=== PATIENT | male | born 1965 | race Caucasian/White ===

== ENCOUNTER 2019-04-29 10:22 | Emergency (ER) | payer BC ==
--- NOTE | 2019-04-29 10:48 | ED ---
Lower Extremity - HPI Summary HPI Summary: This patient is a 54 year old M presenting to [facility] accompanied by with a chief complaint of pain in back of left calf since 04/28/19. Pt reports he was throwing a barrel of hay onto hay wagon and something popped in his knee. Pt reports several months ago there was a knot in the left knee, that has been there but it was gone yesterday. The patient rates the pain 7/10 in severity, when ambulating, and 0/10 when resting. - History of Current Complaint Chief Complaint: EDExtremityLower Stated Complaint: PAIN/SWELLING IN LT CALF PER PT Time Seen by Provider: 04/29/19 10:40 Hx Obtained From: Patient Mechanism Of Injury: Twisted Onset of Pain: Post Accident Onset/Duration: Still Present Severity Initially: Moderate Severity Currently: None Pain Intensity: 0 Pain Scale Used: 0-10 Numeric Timing: Constant Location: Is Discrete @ - back of left calf Aggravating Factor(s): Ambulation Alleviating Factor(s): Rest - Allergies/Home Medications Allergies/Adverse Reactions: Allergies Allergy/AdvReac Type Severity Reaction Status Date / Time No Known Allergies Allergy Verified 04/29/19 10:37 Home Medications: Home Medications NK [No Home Medications Reported] 04/29/19 [History Confirmed 04/29/19] PMH/Surg Hx/FS Hx/Imm Hx Sensory History: Denies: Hx Legally Blind Opthamlomology History: Denies: Hx Legally Blind EENT History: Denies: Hx Deafness - Surgical History Surgical History: None Infectious Disease History: No Infectious Disease History: Denies: Traveled Outside the [place] in Last 30 Days - Family History Known Family History: Positive: Hypertension, Diabetes - Social History Lives: With Family Alcohol Use: Daily Alcohol Amount: 2-3 drinks Hx Substance Use: No Substance Use Type: Reports: None Hx Tobacco Use: No Smoking Status (MU): Never Smoked Tobacco Review of Systems Negative: Fever Positive: Other - pos - pain a back of left calf All Other Systems Reviewed And Are Negative: Yes Physical Exam - Summary Physical Exam Summary: VITAL SIGNS: Reviewed. GENERAL: Patient is a well-developed and nourished male who is lying comfortable in the stretcher. Patient is not in any acute respiratory distress. HEAD AND FACE: No signs of trauma. No ecchymosis, hematomas or skull depressions. No sinus tenderness. EYES: PERRLA, EOMI x 2, No injected conjunctiva, no nystagmus. EARS: Hearing grossly intact. Ear canals and tympanic membranes are within normal limits. MOUTH: Oropharynx within normal limits. NECK: Supple, trachea is midline, no adenopathy, no JVD, no carotid bruit, no c- spine tenderness, neck with full ROM. CHEST: Symmetric, no tenderness at palpation. LUNGS: Clear to auscultation bilaterally. No wheezing or crackles. CVS: Regular rate and rhythm, S1 and S2 present, no murmurs or gallops appreciated. ABDOMEN: Soft, non-tender. No signs of distention. No rebound, no guarding, and no masses palpated. Bowel sounds are normal. EXTREMITIES: FROM in all major joints, no edema, no cyanosis or clubbing. Swelling of left calf with no deformity, no hematoma, no ecchymosis, tenderness with palpation, knee within normal limit, draw test for knee negative, good capillary fill and good pulses, skin color is normal NEURO: Alert and oriented x 3. No acute neurological deficits. Speech is normal and follows commands. SKIN: Dry and warm. Triage Information Reviewed: Yes Vital Signs On Initial Exam: Initial Vitals Temp Pulse Resp BP Pulse Ox 98.7 F 55 18 167/92 99 04/29/19 10:36 04/29/19 10:36 04/29/19 10:36 04/29/19 10:36 04/29/19 10:36 Vital Signs Reviewed: Yes Diagnostics - Vital Signs Vital Signs Temp Pulse Resp BP Pulse Ox 04/29/19 10:36 98.7 F 55 18 167/92 99 - Laboratory Result Diagrams: 04/29/19 10:56 04/29/19 10:56 Lab Statement: Any lab studies that have been ordered have been reviewed, and results considered in the medical decision making process. Re-Evaluation - Re-Evaluation First Eval Re-Evaluation Time: 11:21 Comment: I discussed all the findings and test results with the patient. Plan of care was discussed with the patient and understands and agrees. Lung exam before discharge: CTA B/L. Good air exchange. No wheezing or crackles heard. CVS : S1 and S2 present. No murmurs appreciated. Patient is alert and oriented x 3. Patient is hemodynamically stable. Lower Extremity Course/Dx - Course Assessment/Plan: This patient is a 54 year old M presenting to [facility] accompanied by with a chief complaint of pain in back of left calf since 08/07. Pt reports he was throwing a barrel of hay onto hay wagon and something popped in the knee. Pt reports several months ago there was a knot in the left knee, that has been there but it was gone yesterday. The patient rates the pain 7/10 in severity, when ambulating. Blood work without any significant abnormality except for glucose of 111, CPK of 52. I believe that the patient may be dealing with a gastrocnemius muscle injury or tear or rupture. I discussed the case with Dr. Devine from orthopedics and he recommends for the patient to be placed in CAM boot and discharged him home with follow-up at his office. I discussed all the findings and test results with the patient. Patient was instructed to return to the emergency room immediately if any of the symptoms return worsens. Plan of care was discussed with the patient and understands and agrees. All questions were answered at patient satisfaction. There were no further complaints or concerns. Lung exam before discharge: CTA B/ L. Good air exchange. No wheezing or crackles heard. CVS: S1 and S2 present. No murmurs appreciated. Patient is alert and oriented x 3. Patient is hemodynamically stable. Patient will be discharged home with follow up PCP in the next 2-3 days - Diagnoses Provider Diagnoses: Gastrocnemius tendon tear - Physician Notifications Discussed Care Of Patient With: López Nieves Time Discussed With Above Provider: 11:18 Instructed by Provider To: Other - Discussed patient's case with Dr. Nieves, who recommends for the pt to be discharged with a boot on his left lower extremity, with a follow up at his office. Discharge - Sign-Out/Discharge Documenting (check all that apply): Patient Departure - Discharge Patient Received Moderate/Deep Sedation with Procedure: No - Discharge Plan Condition: Stable Disposition: HOME Patient Education Materials: Leg Pain (ED) Forms: *Work Release Referrals: Andreia Chavis MD [Primary Care Provider] - 3 Days López Nieves MD [Medical Doctor] - 3 Days Additional Instructions: Follow up with Dr. Nieves in orthopedics within three days. Follow up with your primary care provider within three days. RETURN TO THE ED FOR ANY WORSENING OR NEW SYMPTOMS. - Billing Disposition and Condition Condition: STABLE Disposition: Home - Attestation Statements Document Initiated by Zamzam: Yes Documenting Scribe: Cassie Stokes Provider For Whom Zamzam is Documenting (Include Credential): Dr. Julian Dietz MD Scribe Attestation: Cassie Tran, scribed for Dr. Julian Dietz MD on 04/30/19 at 0817. Scribe Documentation Reviewed: Yes Provider Attestation: The documentation as recorded by the zamzam, Cassie Stokes accurately reflects the service I personally performed and the decisions made by me, Dr. Julian Dietz MD Status of Scribe Document: Viewed
[2019-04-29 11:05] LABS: ABS Eosinophils 0.1 10^3/ul (0-0.6); ABS Lymphocytes 0.9 10^3/ul (1.0-4.8); ABS Monocytes 0.4 10^3/ul (0-0.8); Eosinophil % 1.5 %; Hematocrit 43 % (42-52); Hemoglobin 15.4 g/dL (14.0-18.0); Lymphocyte % 17.5 %; Mean Corpuscular HGB Conc 36 g/dL (31-36); Mean Corpuscular Hemoglobin 31 pg (27-31); Mean Corpuscular Volume 86 fL (80-94); Mean Platelet Volume 9.8 fL (7.4-10.4); Nucleated Red Blood Cells % 0.3; Platelet Count 100 10^3/uL (150-450); Red Blood Count 5.02 10^6 /uL (4.18-5.48); Red Cell Distribution Width 14 % (10-15); White Blood Count 5.4 10^3/uL (3.5-10.8)
[2019-04-29 11:24] LABS: Albumin 4.2 g/dL (3.2-5.2); Albumin/Globulin Ratio 1.8 (1-3); BUN/Creatinine Ratio 16.5 (8-20); C Reactive Protein 3.6 mg/L (<8.01); EGFR African American 97.2 (>60); EGFR Non-African American 80.4 (>60); Globulin 2.3 g/dL (2-4); Potassium 4.1 mmol/L (3.5-5.0); Total Protein 6.5 g/dL (6.4-8.9)
[2019-04-29 13:16] VITALS: BP 144/83
== END 2019-04-29 13:14 | disposition home or self-care (01) ==
LOC: ED 10:22
DX: S86.812A Strain of other muscle(s) and tendon(s) at lower leg level, left leg, initial encounter (principal); X50.0XXA Overexertion from strenuous movement or load, initial encounter
CPT/HCPCS: 36415; 80053; 82550; 85025; 86140; 99282